=== PATIENT | male | born 1995 | race American Indian/Alaskan Native ===

== ENCOUNTER 2019-08-25 04:01 | Emergency (ER) | payer SELFPAY ==
[2019-08-25] MEDS ORDERED: ALBUTEROL 2.5 MG/3 ML NEBU IH ONE ×4 (04:12→07:04)
[2019-08-25] MEDS ORDERED: IPRATROPIUM 0.02% NEBU 2.5 ML IH ONE ×3 (04:12→07:04)
[2019-08-25] MEDS ORDERED: predniSONE 20 MG TAB PO ONE (07:04)
--- NOTE | 2019-08-25 07:06 | Emergency Department Report ---
ED Asthma HPI - General Chief Complaint: Dyspnea/Respdistress Stated Complaint: CHEST PAIN, DIFFICULTY IN BREATHING Time Seen by Provider: 08/25/19 06:57 Source: patient Mode of arrival: Ambulatory Limitations: No Limitations - History of Present Illness Initial Comments: 24-year-old male the past medical history asthma presents to the hospital complaining of wheezing and shortness of breath since 11 PM last night. Patient requests a cough productive of clear mucous and feeling hot and cold without documented fever. Patient uses a home nebulizer meds without improvement. Positive associated chest tightness. Patient received albuterol 10 mg Atrovent 0.5 mg prior to my evaluation. - Related Data Previous Rx's Medication Instructions Recorded Last Taken Type ALBUTEROL NEB's [Proventil 0.083% 2.5 mg IH TID PRN #30 neb 08/25/19 Unknown Rx NEBS] Azithromycin [Zithromax TAB] 250 mg PO QDAY #4 tablet 08/25/19 Unknown Rx Prednisone [predniSONE 10 mg 10 mg PO .TAPER #1 tab.ds.pk 08/25/19 Unknown Rx (6-Day Pack, 21 Tabs)] Allergies Allergy/AdvReac Type Severity Reaction Status Date / Time amoxicillin Allergy Hives Verified 08/25/19 04:18 shellfish derived Allergy Hives Verified 08/25/19 04:18 ED Review of Systems ROS: Stated complaint: CHEST PAIN, DIFFICULTY IN BREATHING Other details as noted in HPI Comment: All other systems reviewed and negative ED Past Medical Hx - Past Medical History Previous Medical History?: Yes Hx Asthma: Yes - Surgical History Past Surgical History?: No - Social History Smoking Status: Current Every Day Smoker Substance Use Type: Alcohol - Medications Home Medications: Home Medications Medication Instructions Recorded Confirmed Last Taken Type ALBUTEROL NEB's [Proventil 0.083% 2.5 mg IH TID PRN #30 neb 08/25/19 Unknown Rx NEBS] Azithromycin [Zithromax TAB] 250 mg PO QDAY #4 tablet 08/25/19 Unknown Rx Prednisone [predniSONE 10 mg 10 mg PO .TAPER #1 tab.ds.pk 08/25/19 Unknown Rx (6-Day Pack, 21 Tabs)] ED Physical Exam - General Limitations: No Limitations - Other Other exam information: General: No acute distress Head: Atraumatic Eyes: normal appearance ENT: Moist mucous membranes Neck: Normal appearance, no midline tenderness Chest: No tachypnea or accessory muscle use, bilateral expiratory wheeze CV: Mild tachycardia regular rhythm Abdomen: Soft, normal bowel sounds, nontender, nondistended, no rebound or guarding Back: Normal inspection Extremity: Normal inspection, full range of motion, no leg edema or calf tenderness Neuro: Alert O x 3, no facial asymmetry, speech clear, no gross motor sensory deficit Psych: Appropriate behavior Skin: No rash ED Course Vital Signs 08/25/19 08/25/19 08/25/19 04:06 07:25 07:26 Temperature 97.0 F L Pulse Rate 111 H 108 H Pulse Rate [ Bilateral] Respiratory 24 18 18 Rate Respiratory Rate [Bilateral ] Blood Pressure 118/93 Blood Pressure 110/66 [Left] O2 Sat by Pulse 92 95 96 Oximetry 08/25/19 08:45 Temperature Pulse Rate Pulse Rate [ 82 Bilateral] Respiratory Rate Respiratory 18 Rate [Bilateral ] Blood Pressure Blood Pressure [Left] O2 Sat by Pulse Oximetry ED Medical Decision Making - Radiology Data Radiology results: report reviewed CHEST 2 VIEWS INDICATION / CLINICAL INFORMATION: sob, wheezing, cough. COMPARISON: None available. FINDINGS: SUPPORT DEVICES: None. HEART / MEDIASTINUM: No significant abnormality. LUNGS / PLEURA: Left lung is clear. There is a small amount of consolidation in the right lower lobe indicating pneumonia. No edema or effusion. No definite adenopathy. No pneumothorax. ADDITIONAL FINDINGS: No significant additional findings. IMPRESSION: 1. Minimal right lower lobe pneumonia - Medical Decision Making pt feeling better with minimal wheeze after nebs and prednisone Hypoxia, heart rate improving Chest x-ray shows infiltrate, azithromycin by mouth in the ED Will be discharged on meds and follow up advised - Differential Diagnosis asthma, pneumonia, bronchitis Critical Care Time: No Critical care attestation.: If time is entered above; I have spent that time in minutes in the direct care o f this critically ill patient, excluding procedure time. ED Disposition Clinical Impression: RLL pneumonia, Acute asthma exacerbation Disposition: DC-01 TO HOME OR SELFCARE Is pt being admited?: No Condition: Stable Instructions: Asthma (ED), Community-acquired Pneumonia (ED) Additional Instructions: Take the medication as prescribed. Follow-up with your doctor or doctor/clinic provided. Return if symptoms worsen as indicated by your discharge instructions. Prescriptions: Prednisone [predniSONE 10 mg (6-Day Pack, 21 Tabs)] 10 mg PO .TAPER #1 tab.ds.pk ALBUTEROL NEB's [Proventil 0.083% NEBS] 2.5 mg IH TID PRN #30 neb PRN Reason: Wheezing Azithromycin [Zithromax TAB] 250 mg PO QDAY #4 tablet Referrals: PRIMARY CAREMD [Primary Care Provider] - 3-5 Days BOGDAN CORDOVA MD [Staff Physician] - 3-5 Days [facility] [Provider Group] - 3-5 Days Time of Disposition: 10:58
--- NOTE | 2019-08-25 08:29 | XRay Report ---
CHEST 2 VIEWS INDICATION / CLINICAL INFORMATION: sob, wheezing, cough. COMPARISON: None available. FINDINGS: SUPPORT DEVICES: None. HEART / MEDIASTINUM: No significant abnormality. LUNGS / PLEURA: Left lung is clear. There is a small amount of consolidation in the right lower lobe indicating pneumonia. No edema or effusion. No definite adenopathy. No pneumothorax. ADDITIONAL FINDINGS: No significant additional findings. IMPRESSION: 1. Minimal right lower lobe pneumonia Signer Name: Brad Mckeon MD Signed: 08/25/2019 8:24 AM Workstation Name: [id number]
[2019-08-25] MEDS ORDERED: AZITHROMYCIN 250 MG TAB PO ONE (10:53)
[2019-08-25 11:20] VITALS: BP 117/62
== END 2019-08-25 11:20 | disposition home or self-care (01) ==
LOC: ED 04:01
DX: J45.901 Unspecified asthma with (acute) exacerbation (principal); J18.9 Pneumonia, unspecified organism; J45.909 Unspecified asthma, uncomplicated; F17.200 Nicotine dependence, unspecified, uncomplicated; Z88.1 Allergy status to other antibiotic agents; Z91.013 Allergy to seafood; Z79.899 Other long term (current) drug therapy
CPT/HCPCS: 71046; 94640; 99283; J7512; 94644